=== PATIENT | female | born 1950 | race Caucasian/White ===

== ENCOUNTER 2018-05-12 09:53 | Outpatient (CLI) | payer OTHER ==
[~2018-05-12 09:53] MED LIST: AVAPRO75 MG; MEDROL32 MG; PNEU16DI2
== END 2018-05-12 09:56 | disposition home or self-care (01) ==
LOC: MAMO-SONO 09:53
DX: Z12.31 Encounter for screening mammogram for malignant neoplasm of breast (principal); Z87.898 Personal history of other specified conditions; N64.4 Mastodynia

== ENCOUNTER 2022-06-21 09:15 | Outpatient (CLI) | payer OTHER | END 2022-06-21 09:24 | disposition home or self-care (01) | LOC: NUCLEAR 09:15 | PROVIDERS: ATTEND Internal Medicine | DX: I73.9 Peripheral vascular disease, unspecified (principal); I11.9 Hypertensive heart disease without heart failure; E78.2 Mixed hyperlipidemia ==

== ENCOUNTER 2022-06-29 08:14 | Outpatient (CLI) | payer OTHER | END 2022-06-29 08:15 | disposition home or self-care (01) | LOC: NUCLEAR 08:14 | PROVIDERS: ATTEND Internal Medicine | DX: I11.9 Hypertensive heart disease without heart failure (principal); E78.2 Mixed hyperlipidemia; I73.9 Peripheral vascular disease, unspecified ==

== ENCOUNTER 2022-11-03 09:43 | Outpatient (CLI) | payer OTHER | END 2022-11-03 09:51 | disposition home or self-care (01) | LOC: MAMO-SONO 09:43 | PROVIDERS: ATTEND Obstetrics & Gynecology | DX: Z12.31 Encounter for screening mammogram for malignant neoplasm of breast (principal); N60.11 Diffuse cystic mastopathy of right breast; N60.12 Diffuse cystic mastopathy of left breast ==